=== PATIENT | female | born 1960 | race Caucasian/White ===

== ENCOUNTER → 2018-05-14 | Outpatient (CLI) | payer BC, OTHER ==
[~2018-05-14] MED LIST: ACET-1600 PO; ACET-709 PO; ALPR0.25 PO; ATEN100T PO; ATOR40TA78 PO; CHOL5000 PO; CRAN500C PO; EMPA25TA PO; FLUO40CA9 PO; LEVO75TA5 PO; LOSA100T7 PO; MELA1TAB15 PO; NATE60TA2 PO; OMEP40CA6 PO; PLEXUS BIO CLEANSE PO; PLEXUS PROBIO PO; PLEXUS SLIM PO; SITA50TA PO; SUCR1TAB PO; SUMA50TA3 PO
[2018-05-14 10:15] LABS: CULTURE INDICATED? NO; MICROSCOPIC NOT IND
[2018-05-14 10:17] LABS: BASOPHILS # (AUTO) 0.06 x10^3/uL (0-0.1); BASOPHILS % (AUTO) 1 % (0-1); EOSINOPHILS # (AUTO) 0.25 x10^3/uL (0-0.4); EOSINOPHILS % (AUTO) 3 % (1-7); LYMPHOCYTES # (AUTO) 1.98 x10^3/uL (1-3.4); LYMPHOCYTES % (AUTO) 23 % (22-44); MD NO; MEAN CORPUSCULAR HEMOGLOBIN 30.9 pg (27.0-34.8); MEAN CORPUSCULAR HGB CONC 33.6 g/dL (32.4-35.8); MEAN CORPUSCULAR VOLUME 91.8 fL (80-100); MEAN PLATELET VOLUME 9.9 fL (7.4-10.4); MONOCYTES # (AUTO) 0.57 x10^3/uL (0.2-0.8); MONOCYTES % (AUTO) 7 % (2-9); NEUTROPHILS # (AUTO) 5.91 x10^3/uL (1.8-6.8); NEUTROPHILS % (AUTO) 67 % (42-75); PLATELET COUNT 216 x10^3/uL (130-400); RED BLOOD COUNT 4.98 x10^6/uL (3.82-5.3); RED CELL DISTRIBUTION WIDTH 13.6 % (9.6-15.2)
[2018-05-14 10:21] LABS: HCT (SEDRATE) 45.7 % (34.6-47.8)
[2018-05-14 10:26] LABS: ALANINE AMINOTRANSFERASE 45 U/L (12-78); ALBUMIN 4.3 g/dL (3.4-5.0); ANION GAP 9 mmol/L (5-15); CALCIUM 9.4 mg/dL (8.5-10.1); CHLORIDE 106 mmol/L (98-107); CREATININE 0.93 mg/dL (0.55-1.02)
[2018-05-14 10:28] LABS: ALKALINE PHOSPHATASE 126 U/L (45-117); BILIRUBIN,TOTAL 0.6 mg/dL (0.2-1.0); TOTAL PROTEIN 8.1 g/dL (6.4-8.2)
[2018-05-14 10:31] LABS: INTERNATIONAL NORMALIZED RATIO 0.98 (0.93-1.1); PROTHROMBIN TIME 10.2 Seconds (9.6-11.5)
== END | disposition home or self-care (01) ==
LOC: STAR 08:48
PROVIDERS: ATTEND Orthopaedic Surgery Orthopaedic Surgery of the Spine
DX: Z01.818 Encounter for other preprocedural examination (principal); I10 Essential (primary) hypertension; E11.9 Type 2 diabetes mellitus without complications
CPT/HCPCS: 36415; 71046; 80053; 81003; 85025; 85610; 85651; 85730; 87081; 93005

== ENCOUNTER 2018-05-20 09:54 | Inpatient (IN) | payer BC, OTHER ==
[~2018-05-20] VITALS: Ht 165.1 cm; Wt 114.1 kg
[~2018-05-20 09:54] MED LIST changes: +BUPIVACAINE/PF 0.5% ONE; +EPINEPHRINE 1 MG/ML, 1ML ONE; +HYDROmorphone 1 MG/ML, 1ML IV PRN; +LABETALOL 5MG/ML, 20ML IV PRN; +MIDAZOLAM 1 MG/ML, 2ML IV PRN; +ONDANSETRON 2MG/ML, 2ML IVPush PRN; +OXYcodone 5 MG/5 ML ORAL.SOL UDC PO PRN; +TRANEXAMIC ACID 100 MG/ML, 10ML ONE; +VANCOMYCIN 1,000 MG ONE
[2018-05-20] MEDS ORDERED: LACTATED RINGERS 1,000 ML IV SCH (10:24)
[2018-05-20 10:26] VITALS: BP 120/82
[2018-05-20] MEDS ORDERED: MIDAZOLAM 1 MG/ML, 2ML ONE (11:12)
[2018-05-20] MEDS ORDERED: FENTANYL PF 100 MCG/2ML ONE ×3 (11:12→14:39)
[2018-05-20] MEDS ORDERED: TRANEXAMIC ACID 1,500 MG in SODIUM CHLORIDE 0.9% 100 ML IVPB ONE (14:30)
[2018-05-20] MEDS ORDERED: OXYcodone 5 MG/5 ML ORAL.SOL UDC ONE (14:39)
[2018-05-20] MEDS ORDERED: MEPERIDINE/PF 50 MG/ML ONE (14:39)
[2018-05-20] MEDS: MEPERIDINE/PF 25MG/0.5ML IVPush PRN ×2 (14:44→15:10)
[2018-05-20] MEDS: FENTANYL PF 100 MCG/2ML IV PRN ×2 (14:47→14:59)
[2018-05-20] MEDS ORDERED: CEFAZOLIN 1,000 MG ONE (15:13)
[2018-05-20] MEDS ORDERED: PROPOFOL 10 MG/ML, 20ML ONE (15:13)
[2018-05-20] MEDS: KETOROLAC 30 MG/1 ML IV SCH (16:50)
[2018-05-20] MEDS ORDERED: BISACODYL 10 MG SUPP PR PRN (17:00)
[2018-05-20] MEDS ORDERED: LORazepam 1MG TABLET PO PRN (17:00)
[2018-05-20] MEDS ORDERED: ONDANSETRON 2MG/ML, 2ML IV PRN (17:00)
[2018-05-20] MEDS ORDERED: ONDANSETRON 4 MG TABLET PO PRN (17:00)
[2018-05-20] MEDS ORDERED: DIPHENHYDRAMINE 25 MG CAPSULE PO PRN (17:00)
[2018-05-20] MEDS ORDERED: ZOLPIDEM 5MG TABLET PO PRN (17:00)
[2018-05-20] MEDS ORDERED: PROMETHAZINE 25 MG SUPP PR PRN (17:00)
[2018-05-20] MEDS ORDERED: MAGNESIUM HYDROXIDE 8%, 30ML UDC PO PRN (17:00)
[2018-05-20] MEDS ORDERED: OXYcodone IR 5MG TABLET PO PRN (17:00)
[2018-05-20] MEDS ORDERED: SCOPOLAMINE PATCH, 1.5MG PATCH.TD72 TD PRN (17:00)
[2018-05-20] MEDS ORDERED: LORazepam 2 MG/ML, 1ML IV PRN (17:00)
[2018-05-20] MEDS ORDERED: PROMETHAZINE 25 MG/ML, 1ML IM PRN (17:00)
[2018-05-20] MEDS ORDERED: ACETAMINOPHEN 500 MG TABLET PO PRN (17:00)
[2018-05-20] MEDS ORDERED: morphine SULFATE 10 MG/ML, 1ML IV PRN (17:00)
[2018-05-20] MEDS ORDERED: SENNA/DOCUSATE TABLET PO PRN (17:00)
[2018-05-20] MEDS ORDERED: DEXAMETHASONE 4 MG/ML, 1ML IV PRN (17:00)
[2018-05-20] MEDS ORDERED: APAP/CODEINE 300/30MG TABLET PO PRN (17:00)
[2018-05-20] MEDS ORDERED: SUMATRIPTAN 50 MG TABLET PO PRN (17:30)
[2018-05-20 20:00] VITALS: BP 106/68
[2018-05-20] MEDS: CEFAZOLIN 2,000 MG in SODIUM CHLORIDE 0.9% 50 ML IVPB SCH (20:00)
[2018-05-20] MEDS ORDERED: CEFAZOLIN 2,000 MG in SODIUM CHLORIDE 0.9% 50 ML IVPB SCH (20:00)
[2018-05-20] MEDS ORDERED: CEFAZOLIN PMX 2GM/100ML 100 ML IVPB SCH (20:00)
[2018-05-20] MEDS: POTASSIUM CHLORIDE 20 MEQ in D5%-0.45% NACL 1,000 ML IV SCH (20:51)
[2018-05-20] MEDS: DOCUSATE 100 MG CAPSULE PO SCH (20:52)
[2018-05-20] MEDS: ATORVASTATIN 40 MG TABLET PO SCH (20:52)
[2018-05-20] MEDS: NATEGLINIDE 120 MG TABLET PO SCH (20:52)
[2018-05-20] MEDS: ACETAMINOPHEN 500 MG TABLET PO SCH (20:52)
[2018-05-20] MEDS: SUCRALFATE 1 GM TABLET PO SCH (20:52)
[2018-05-21 00:09] VITALS: BP 94/57
[2018-05-21] MEDS: KETOROLAC 30 MG/1 ML IV SCH ×2 (01:13→10:11)
[2018-05-21] MEDS: ASPIRIN 325 MG TABLET PO SCH ×3 (01:13→22:45)
[2018-05-21] MEDS: CEFAZOLIN 2,000 MG in SODIUM CHLORIDE 0.9% 50 ML IVPB SCH (03:36)
[2018-05-21] MEDS: ACETAMINOPHEN 500 MG TABLET PO SCH ×4 (03:40→22:45)
[2018-05-21 03:43] VITALS: BP 114/69
[2018-05-21 05:21] LABS: BASOPHILS # (AUTO) 0.04 x10^3/uL (0-0.1); BASOPHILS % (AUTO) 0 % (0-1); EOSINOPHILS % (AUTO) 0 % (1-7); LYMPHOCYTES # (AUTO) 1.07 x10^3/uL (1-3.4); LYMPHOCYTES % (AUTO) 9 % (22-44); MD NO; MEAN CORPUSCULAR HEMOGLOBIN 30.7 pg (27.0-34.8); MEAN CORPUSCULAR HGB CONC 33.6 g/dL (32.4-35.8); MEAN CORPUSCULAR VOLUME 91.3 fL (80-100); MEAN PLATELET VOLUME 9.5 fL (7.4-10.4); MONOCYTES # (AUTO) 0.85 x10^3/uL (0.2-0.8); MONOCYTES % (AUTO) 7 % (2-9); NEUTROPHILS # (AUTO) 9.53 x10^3/uL (1.8-6.8); NEUTROPHILS % (AUTO) 83 % (42-75); PLATELET COUNT 171 x10^3/uL (130-400); RED BLOOD COUNT 4.13 x10^6/uL (3.82-5.3); RED CELL DISTRIBUTION WIDTH 13.6 % (9.6-15.2)
[2018-05-21] MEDS: POTASSIUM CHLORIDE 20 MEQ in D5%-0.45% NACL 1,000 ML IV SCH ×2 (05:36→15:42)
[2018-05-21] MEDS: OMEPRAZOLE 20 MG CAPSULE.DR PO SCH (05:45)
[2018-05-21] MEDS: LEVOTHYROXINE 75 MCG TABLET PO SCH (05:45)
[2018-05-21] MEDS: OXYcodone IR 5MG TABLET PO PRN ×4 (07:36→23:02)
[2018-05-21] MEDS: SUCRALFATE 1 GM TABLET PO SCH ×2 (07:36→22:45)
[2018-05-21] MEDS: DOCUSATE 100 MG CAPSULE PO SCH ×2 (07:36→22:45)
[2018-05-21] MEDS: FLUOXETINE HCL 20 MG CAPSULE PO SCH (07:36)
[2018-05-21] MEDS: LOSARTAN 50MG TABLET PO SCH (07:37)
[2018-05-21] MEDS: CHOLECALCIFEROL 5,000u TAB PO SCH (07:37)
[2018-05-21 07:43] VITALS: BP 120/77
[2018-05-21] MEDS: NATEGLINIDE 120 MG TABLET PO SCH ×3 (11:26→22:53)
[2018-05-21] MEDS: DIAZEPAM 5 MG TABLET PO PRN ×3 (14:13→23:02)
[2018-05-21 15:22] VITALS: BP 106/70
[2018-05-21] MEDS ORDERED: KETOROLAC 30 MG/1 ML IV PRN (17:00)
[2018-05-21] MEDS ORDERED: ATENOLOL 50 MG TABLET ONE (17:13)
[2018-05-21] MEDS: ATENOLOL 100 MG TABLET PO SCH (17:17)
[2018-05-21 19:28] VITALS: BP 123/72
[2018-05-21] MEDS: ATORVASTATIN 40 MG TABLET PO SCH (22:45)
[2018-05-22] MEDS: POTASSIUM CHLORIDE 20 MEQ in D5%-0.45% NACL 1,000 ML IV SCH ×2 (01:48→11:54)
[2018-05-22 01:49] VITALS: BP 112/73
[2018-05-22] MEDS ORDERED: ATENOLOL 50 MG TABLET ONE (05:50)
[2018-05-22] MEDS: OMEPRAZOLE 20 MG CAPSULE.DR PO SCH (05:53)
[2018-05-22] MEDS: ACETAMINOPHEN 500 MG TABLET PO SCH ×2 (05:53→11:06)
[2018-05-22] MEDS: OXYcodone IR 5MG TABLET PO PRN ×3 (05:53→11:57)
[2018-05-22] MEDS: ATENOLOL 100 MG TABLET PO SCH (05:54)
[2018-05-22] MEDS: LEVOTHYROXINE 75 MCG TABLET PO SCH (05:54)
[2018-05-22 08:14] VITALS: BP 123/74
[2018-05-22] MEDS: SUCRALFATE 1 GM TABLET PO SCH (09:03)
[2018-05-22] MEDS: ASPIRIN 325 MG TABLET PO SCH (09:03)
[2018-05-22] MEDS: DOCUSATE 100 MG CAPSULE PO SCH (09:03)
[2018-05-22] MEDS: CHOLECALCIFEROL 5,000u TAB PO SCH (09:04)
[2018-05-22] MEDS: NATEGLINIDE 120 MG TABLET PO SCH (09:04)
[2018-05-22] MEDS: LOSARTAN 50MG TABLET PO SCH (09:04)
[2018-05-22] MEDS: DIAZEPAM 5 MG TABLET PO PRN ×2 (09:04→12:55)
[2018-05-22] MEDS: FLUOXETINE HCL 20 MG CAPSULE PO SCH (09:04)
[2018-05-22] MEDS ORDERED: IBUPROFEN 800 MG TABLET PO PRN (13:00)
== END 2018-05-22 13:15 | disposition home or self-care (01) | DRG 470 ==
LOC: OUT 09:54 → 4NOR 15:47 → OUT 21:43 → 4NOR 21:43
PROVIDERS: ADMIT Orthopaedic Surgery Orthopaedic Surgery of the Spine; ATTEND Orthopaedic Surgery Orthopaedic Surgery of the Spine
PROC: 3E0T3BZ Introduction of Anesthetic Agent into Peripheral Nerves and Plexi, Percutaneous Approach (ICD-10-PCS; 2018-05-20)
PROC: 0SRC069 Replacement of Right Knee Joint with Oxidized Zirconium on Polyethylene Synthetic Substitute, Cemented, Open Approach (ICD-10-PCS; principal; 2018-05-20 12:00)
PROC: 5A09357 Assistance with Respiratory Ventilation, Less than 24 Consecutive Hours, Continuous Positive Airway Pressure (ICD-10-PCS; 2018-05-21)
PROC: 5A09357 Assistance with Respiratory Ventilation, Less than 24 Consecutive Hours, Continuous Positive Airway Pressure (ICD-10-PCS; 2018-05-22)
DX: M17.11 Unilateral primary osteoarthritis, right knee (principal); E03.9 Hypothyroidism, unspecified; E11.9 Type 2 diabetes mellitus without complications; G43.909 Migraine, unspecified, not intractable, without status migrainosus; Z90.710 Acquired absence of both cervix and uterus; K21.9 Gastro-esophageal reflux disease without esophagitis; I10 Essential (primary) hypertension
CPT/HCPCS: 36415; 82962; 85025; C1713; G0378; J0171; J0690; J1100; J1885; J2175; J2250; J2704; J3010; J3370; J3480; J3490; C1776; J2270; J7120